=== PATIENT | female | born 1955 | race Asian ===

== ENCOUNTER 2021-09-22 11:39 | Emergency (ER) | payer MEDICARE ==
[~2021-09-22] VITALS: Ht 165.1 cm; Wt 54.5 kg
[2021-09-22 11:56] VITALS: BP 145/85
[2021-09-22 12:33] LABS: EOSINOPHILS % (AUTO) 0.2 % (0-6); LYMPHOCYTES # (AUTO) 0.5 X10'3 (1.1-4.8); MONOCYTES # (AUTO) 0.4 X10'3 (0-0.9); WHITE BLOOD COUNT 7.8 X10'3 (4.5-11.0)
[2021-09-22 12:35] LABS: BASOPHILS % (AUTO) 0.5 % (0-1); HEMATOCRIT 39.2 % (35.0-45.0); HEMOGLOBIN 13.4 g/dl (12.0-16.0); MEAN CORPUSCULAR HGB CONC 34.2 g/dL (33.0-36.5); MEAN CORPUSCULAR VOLUME 96.4 FL (78-98); MONOCYTES % (AUTO) 5.6 % (2-12); NEUTROPHILS # (AUTO) 6.8 X10'3 (1.8-7.7); NEUTROPHILS % (AUTO) 87.7 % (42-75); PLATELET COUNT 802 X10'3 (140-440); RED BLOOD COUNT 4.06 X10'6 (4.20-5.60); RED CELL DISTRIBUTION WIDTH 12.9 % (11.5-14.5)
[2021-09-22 12:42] LABS: ALBUMIN 2.4 G/DL (3.4-5.0); ANION GAP 10 (8-16); BILIRUBIN,TOTAL 0.8 MG/DL (0.1-1.0); BLOOD UREA NITROGEN 6 MG/DL (7-18); BUN/CREATININE RATIO 9.5 (6.6-38.0); CALCIUM 9.3 MG/DL (8.5-10.1); CHLORIDE 90 MMOL/L (99-107); CREATININE 0.63 MG/DL (0.40-0.90); GLUCOSE 126 MG/DL (70-104); POTASSIUM 3.1 MMOL/L (3.5-5.1); SODIUM 131 MMOL/L (135-145); TOTAL CARBON DIOXIDE 31.3 MMOL/L (24-32); TOTAL PROTEIN 7.4 G/DL (6.4-8.2); eGFR > 90 ML/MIN
[2021-09-22 12:43] LABS: ALANINE AMINOTRANSFERASE 43 U/L (12-78); ALBUMIN/GLOBULIN RATIO 0.5 (1.1-1.5); ALKALINE PHOSPHATASE 178 IU/L (46-116); ASPARTATE AMINO TRANSFERASE 46 U/L (10-37)
[2021-09-22] MEDS ORDERED: potassium Cl 20 mEq SR tablet PO ONE (13:05)
[2021-09-22 20:01] LABS: PLATELET ESTIMATE INCREASED
[2021-09-22 20:04] LABS: ANISOCYTOSIS 1+
[2021-09-22 20:05] LABS: BURR CELLS 1+
[2021-09-22 20:06] LABS: LARGE PLATELETS MODERATE
== END 2021-09-22 13:52 | disposition home or self-care (01) ==
LOC: ER 11:41
DX: U07.1 COVID-19 (principal); J12.82 Pneumonia due to coronavirus disease 2019; E87.6 Hypokalemia; R42 Dizziness and giddiness
CPT/HCPCS: 36415; 71045; 80053; 83880; 84484; 85008; 85025; 93005; 99285